=== PATIENT | female | born 1965 | race Caucasian/White ===

== ENCOUNTER 2016-10-12 09:07 | Inpatient (IN) ==
--- NOTE | 2016-10-11 21:59 | Discharge Summary ---
<Faiza Ward - Last Filed: 10/11/16 21:56> Date of Encounter: 10/11/16 - Discharge Diagnosis (1) Aseptic loosening of prosthetic knee Priority: Primary Status: Acute Qualifiers: Encounter type: initial encounter Qualified Code(s): T84.038A - Mechanical loosening of other internal prosthetic joint, initial encounter; Z96.659 - Presence of unspecified artificial knee joint (2) Anxiety Priority: Secondary Status: Chronic (3) HTN (hypertension) Priority: Secondary Status: Chronic Qualifiers: Hypertension type: essential hypertension Qualified Code(s): I10 - Essential (primary) hypertension (4) Obesities, morbid Priority: Secondary Status: Chronic Qualifiers: Obesity type: unspecified obesity type Qualified Code(s): E66.01 - Morbid ( severe) obesity due to excess calories (5) Tobacco abuse Priority: Secondary Status: Chronic - Discharge Medications Home Medications: Aripiprazole [Abilify] 10 mg PO DAILY 04/25/15 [History] ClonazePAM [Klonopin] 1 mg PO TID 04/25/15 [History] HydrOXYzine 50 mg PO TID PRN 04/25/15 [History] Lamotrigine [Lamictal] 200 mg PO DAILY 04/25/15 [History] Lisinopril [Zestril] 20 mg PO DAILY 04/25/15 [History] Quetiapine Fumarate [Seroquel] 200 mg PO HS 04/25/15 [History] Gabapentin [Neurontin] 900 mg PO TID 07/01/15 [History] Tizanidine [Zanaflex] 6 mg PO TID PRN 07/01/15 [History] Docusate [Colace] 100 mg PO BID #30 capsule 07/30/16 [Rx] Ondansetron HCl [Zofran] 4 mg PO Q6H PRN #30 tablet 07/30/16 [Rx] Aspirin Enteric Coated [Aspirin EC] 325 mg PO DAILY #21 tablet. 10/11/16 [Rx] OxyCODONE/APAP 5/325 [Percocet 5/325 MG] 1 each PO Q6HR PRN #30 tablet 10/11/16 [Rx] Albuterol Sulfate [Proair Hfa] 2 puff IH Q4H PRN 10/12/16 [History] Diclofenac Sodium [Voltaren] 1 appl TP QID PRN 10/12/16 [History] Ibuprofen [Motrin] 800 mg PO Q8HR PRN 10/12/16 [History] Lidocaine [Lidoderm] 1 appl TP Q12H PRN 10/12/16 [History] Oxycodone HCl/Acetaminophen [Percocet 5-325 mg Tablet] 1 tab PO BID PRN [History] Allergies/Adverse Reactions: Allergies tramadol Adverse Reaction (Mild, Verified 06/10/15 14:32) Nausea acetaminophen [From Vicodin] Adverse Reaction (Verified 06/10/15 13:14) Vomiting codeine Adverse Reaction (Verified 10/12/16 10:18) Nausea Diclofenac Adverse Reaction (Verified 10/12/16 10:18) Nausea hydrocodone [From Vicodin] Adverse Reaction (Verified 06/10/15 13:14) Vomiting meloxicam [From Mobic] Adverse Reaction (Verified 10/12/16 10:18) Vomiting Steriods Allergy (Uncoded 07/28/16 19:58) Difficulty Breathing Primary care physician: Rogelio Salazar, - Patient Status Disposition: Home, Self-Care Condition: Good - Discharge Instructions Follow Up With: Rogelio Salazar DO [Primary Care Provider] - Faiza Ward, PAC [Physician Program Director] - 10/23/16 11:15 am Additional Instructions: Discharge Instructions: Total Knee Replacement Please call [facility] ([phone]), your Primary Care Physician, or report to the Emergency Room if you have any of the following symptoms: Nausea, vomiting, fever greater that 101.5, swelling, chest pain, shortness of breath, increased pain/redness/drainage/odor for your incision site, numbness/ tingling, or any other concerning symptoms. ACTIVITY:Weight-bearing as tolerated. You may progress off support (cruthches or walker) as tolerated. MEDICATIONS: Upon discharge resume your home medications. Take all the medications as prescribed. Take a stool softener if taking narcotic pain medications. Stool softeners are only effective if you drink enough fluids. Drink 6-8 glass of water or fluids a day, unless this is not allowed for another health problem. Despite using stool softeners, if you haven't had a bowel movement in 3 days, please switch to a gentle laxative. Gentle laxatives are sold over the counter. You should have a bowel movement within 24 hours, if not call the office. You will be discharged from the hospital with a prescription for pain medication. You are encouraged to decrease the use of narcotic pain medication as tolerated. Should you require a refill, please call the office. [facility] prescribes narcotic pain medication for only 4-6 weeks after surgery. If you require pain medication beyond this time periord, you may be referred to your Primary Care Physician or to the Pain Clinic for further evaluation. Plan ahead for refills on pain medication as many narcotics either need to be picked up at the office or mailed. It is best to call 48-72 hours in advance of needing a prescription refill so you don't run out of medication. To help control the post-operative pain, you may take NSAIDs (Aleve,Advil, Motrin, ibuprofen, naprosyn) or Tylenol as prescribed on the bottle in addition to the pain medication. ANTICOAGULATION (blood thinners): Continue your Aspirin, Lovenox or Coumadin as prescribed to help prevent a blood clot in the leg or in the lungs. As long as your incision remains dry and you tolerate the NSAIDs (Aleve, Advil, Motrin, ibuprofen, naprosyn), it is OK to use the NSAIDS while you are taking your anticoagulation medication. Should your incision start to drain, stop the NSAID and contact our office. Common symptoms of blood clot in the legs include: localized pain, swelling, calf tenderness, redness or discoloration of the skin. Blood clot in the lung symptoms include: shortness of breath, rapid pulse, sweating, and chest pain that worsens with deep breathing, coughing up blood, lightheadedness, feelings of anxiety. If you experience any of these symptoms notify your physician immediately, go to the emergency room, or if having trouble breathing, call 911. WOUND CARE: Leave the dressing on for 7 days. You may change the dressing if it becomes saturated greater than 50%. You can shower but not a tub bath or submerge your incision in water. Wash your hands with antibacterial soap, rinse and dry prior to any wound care. If you have david the visiting nurse or rehab facility can remove the stapes 10-14 days after surgery and place steri- strips across the wound. Leave the steri-strips in place until they fall off on their won. You may let water from the shower run on top of the steri-stirips. If you do not have a visiting nurse or rehab facility, you will need to return to the office at 10-14 days for the david to be removed. FOLLOW-UP: Please follow up with your surgeon in the orthopedic clinic in 4 weeks from the day of surgery. If you have david that need to be removed, you will need to come back to the office in 10-14 days from the day of surgery. - Hospital Course Hospital course: Ms. Delgado is a 51 year old female - Time Spent with Patient Total time spent providing and/or coordinating discharge services: <Jose Chi - Last Filed: 10/13/16 06:37> Date of Encounter: 10/13/16 Time of Encounter: 06:36 - Discharge Diagnosis (1) Aseptic loosening of prosthetic knee Priority: Primary Status: Acute Qualifiers: Encounter type: subsequent encounter Qualified Code(s): T84.038D - Mechanical loosening of other internal prosthetic joint, subsequent encounter; Z96.659 - Presence of unspecified artificial knee joint (2) HTN (hypertension) Priority: Secondary Status: Chronic Qualifiers: Hypertension type: essential hypertension Qualified Code(s): I10 - Essential (primary) hypertension (3) Obesities, morbid Priority: Secondary Status: Chronic Qualifiers: Obesity type: unspecified obesity type Qualified Code(s): E66.01 - Morbid ( severe) obesity due to excess calories (4) Tobacco abuse Status: Chronic Primary care physician: Rogelio Salazar, - Patient Status Functional capacity at discharge: uses cane/walker Overall status at discharge: patient is progressing back to baseline - Hospital Course Hospital course: Ms. Delgado is a 51 year old female The patient had an uneventful postoperative course. They received antibiotics and physical therapy and were discharged in stable condition. There will follow -up in the office in 2 weeks. Aspirin DVT prophylaxis patient discharge yesterday - Time Spent with Patient Total time spent providing and/or coordinating discharge services:
[2016-10-12] MEDS ORDERED: CeFAZolin Pre 2,000 MG/100 ML 2,000 MG/100 ML BAG IVPB ONE (09:29)
[2016-10-12] MEDS ORDERED: Lidocaine 1% 20 ML MDV ID ONE (09:29)
--- NOTE | 2016-10-12 09:33 | Anesthesia Evaluation PreOp ---
Date of Encounter: 10/12/16 Time of Encounter: 09:31 - Past History Planned Operation: Left total knee revision tibial componnt Cardiac History: HTN Pulmonary History: Smoker [employer] History: Other (DDD,SAEZ, Anxiety, Depression,Myofascial pain) Other Medical History: Denies Any Significant HX Anesthesia History: No Prior Anesthetic Complications, Past Anesthesia (R. Shoulder, L. TKR, B. CTR, c/sx3, B. knee scopes, R. foot) : No Test: Negative (10/12/2016) Alcohol Use: none Drug use: marijuana Medications and Allergies Aripiprazole [Abilify] 10 mg PO DAILY 04/25/15 [History] ClonazePAM [Klonopin] 1 mg PO TID 04/25/15 [History] HydrOXYzine 50 mg PO TID 04/25/15 [History] Lamotrigine [Lamictal] 200 mg PO DAILY 04/25/15 [History] Lisinopril [Zestril] 20 mg PO DAILY 04/25/15 [History] Quetiapine Fumarate [Seroquel] 200 mg PO HS 04/25/15 [History] Gabapentin [Neurontin] 900 mg PO TID 07/01/15 [History] Tizanidine [Zanaflex] 6 mg PO TID 07/01/15 [History] Docusate [Colace] 100 mg PO BID #30 capsule 07/30/16 [Rx] Ondansetron HCl [Zofran] 4 mg PO Q6H PRN #30 tablet 07/30/16 [Rx] Sulfamethoxazole/Trimeth DS [Bactrim DS] 1 each PO Q12H #20 tablet 07/30/16 [Rx] Aspirin Enteric Coated [Aspirin EC] 325 mg PO DAILY #21 tablet. 10/11/16 [Rx] OxyCODONE/APAP 5/325 [Percocet 5/325 MG] 1 each PO Q6HR PRN #30 tablet 10/11/16 [Rx] Allergies tramadol Adverse Reaction (Mild, Verified 06/10/15 14:32) Nausea acetaminophen [From Vicodin] Adverse Reaction (Verified 06/10/15 13:14) Vomiting hydrocodone [From Vicodin] Adverse Reaction (Verified 06/10/15 13:14) Vomiting Steriods Allergy (Uncoded 07/28/16 19:58) Difficulty Breathing - Meds/Allergy Pre-op Review Medications Reviewed: Yes Allergies Reviewed: Yes Beta Blockers on Current Med List: No Anesthesia Results - Labs Laboratory Tests 09/30/16 09/30/16 09/30/16 11:41 11:41 11:41 WBC 8.5 Hgb 15.2 Hct 46.1 H Plt Count 282 INR 1.0 Sodium 139 Potassium 4.4 Chloride 108 Carbon Dioxide 20 BUN 9 Creatinine 0.79 04/02/14 Echo EF 55% Normal study - Imaging EKG: image reviewed (SR) Anesthesia Exam O2 Sat Height 1.65 m Height 1.65 m Weight 107.501 kg Weight 107.501 kg O2 Sat by Pulse Oximetry 95 Vital Signs Temp Pulse Resp BP Pulse Ox 98.5 F 66 18 142/88 95 10/12/16 09:29 10/12/16 09:29 10/12/16 09:29 10/12/16 09:29 10/12/16 09:29 Height: 5'5'' Weight: 237# NPO (# of Hours): > 8 hrs Pain Scale: 0 Pain Scale Used: Numeric (1 - 10) - HEENT Pupil (Motor): Pupils equal, EOMI Mallampati: I Teeth: Normal Oral Opening: Greater than 3 - [employer] LOC: Oriented [employer] Motor: Normal RUE, Normal LUE, Normal RLE, Normal LLE, Normal Face [employer] Sensory: Normal: RUE, LUE, RLE, LLE, Face - Cardiac Rhythm: Regular Murmur: None JVD: No Carotid Bruit: No - Pulmonary Breath Sounds: bilateral Clear Respiratory Effort: Symmetrical Anesthesia Assess/Plan ASA Score: 3 Modified Anika Scale for Level of Consciousness: Cooperative, oriented, and tranquil Anesthetic Plan: General, Regional (Left Fem. Nerve Block) Autologous Blood: Yes Monitoring Plan: Standard Monitors Recovery Plan: PACU
--- NOTE | 2016-10-12 09:41 | History & Physical Report ---
Date of Encounter: 10/12/16 Time of Encounter: 09:41 24 Hour HP Update - Instructions Instructions: If the History and Physical is less than 30 days old and was completed prior to A.M. admission and or procedure and has NOT been updated on calendar day of procedure please complete this update prior to performing procedure. - Update Patient reports changes in Medical Condition: No Changes in assessment/condition: No Changes in Medication: No Preop tests/diagnostics Reviewed: Yes Surgery Remains Indicated: Yes Consent for Planned Operative Procedure(s) Verified: Yes - Pre-Operative Checklist Preoperative Checklist Indicated: No Prophylactic Antibiotic Ordered: Yes Is VTE Prophylaxis Indicated?: Yes
[2016-10-12] MEDS ORDERED: Albuterol 2.5 MG/3 ML NEBULIZER ONE (09:43)
[2016-10-12] MEDS: Ringers Solution, Lactated 1,000 ML IVC SCH ×2 (09:54→12:00)
[2016-10-12] MEDS ORDERED: Ondansetron 4 MG/2 ML VIAL IVP ONE (10:03)
[2016-10-12] MEDS ORDERED: *HR* Labetalol 100 MG/20 ML MDV IVP PRN (10:03)
[2016-10-12] MEDS ORDERED: *HR* Promethazine 25 MG/ML VIAL IVP PRN (10:03)
[2016-10-12] MEDS ORDERED: *HR* Midazolam HCl 2 MG/2 ML VIAL ONE (10:15)
[2016-10-12] MEDS ORDERED: Ondansetron 4 MG/2 ML VIAL ONE (10:15)
[2016-10-12] MEDS ORDERED: *HR* FentaNYL (PF) 100 MCG/2 ML VIAL ONE ×2 (10:15→11:48)
[2016-10-12] MEDS ORDERED: *HR* Propofol 200 MG/20 ML VIAL IVP ONE ×2 (10:15→11:23)
[2016-10-12] MEDS ORDERED: ROPIVACAINE HCL/PF 0.5% 30 ML VIAL ONE (10:49)
[2016-10-12] MEDS ORDERED: Bupivacaine/Clonidine Syringe 1 EACH SYRINGE ONE (10:50)
[2016-10-12] MEDS ORDERED: *HR* Rocuronium Bromide 50 MG/5 ML VIAL ONE (11:21)
[2016-10-12] MEDS ORDERED: *HR* Succinylcholine 200 MG/10 ML VIAL IVP ONE (11:21)
--- NOTE | 2016-10-12 11:29 | Anesthesia Procedures ---
Date of Encounter: 10/12/16 Time of Encounter: 11:05 Procedures: Anesthesia - Nerve Block Procedure Date: 10/12/16 Time: 11:05 Checklist: Correct Patient Identifier, Correct procedure, History checked Correct side: Left Blood Thinner: No Monitor Applied: BP, Pulse Oximetry Supplemental Oxygen via Nasal Cannula (L/min): 2 Sedation: Versed (mg): 2 Sedation: Fentanyl (mcg): 100 Indication: Post Op Analgesia Pre-op Neuro Deficits: Yes Block Type: Femoral Catheter placed: No Sterile Technique: Yes Ultrasound used: Yes Anatomy identified: Yes Visual spread of Local: Yes Neuro Stimulation: Yes Nerve Stimulator Range: 0.2 - 0.4 mA Blood on Needle Aspiration: No Smooth Injection of Local: Yes Pain with Injection of Local: No Prep: Chlorhexadine Needle: 22 x 50 mm Stimuplex Local: 0.25% Bupivicaine w/Clonidine 20 mcg/cc (20ml 0.125% bup on IPAC), Ropivacaine (30ml, 0.5%bup plain on fem block) Volume (cc): 60 Number of Attempts: 1 Complications: None/effective block Vitals: vss though out, block per request of surgeon
--- NOTE | 2016-10-12 12:08 | Orthopedic Operative Note ---
Date of procedure: 10/12/16 Pre-op diagnosis: Aseptic loosening left tibial component Post-op diagnosis: same Procedure: Procedure: Left revision tibial component Estimated blood loss: 200 cc Hardware: Arthrex tibia size 4, 14 x 80 stem, 18 PS Shante Exam Under anesthesia: Full flexion full extension well-healed incision no swelling or erythema no varus valgus instability Procedural Notes: Loosening of tibial component Operative procedure: The patient was brought to the operating room and placed on the operating room table. After general anesthesia was administered the operative knee was examined. Findings were noted in the exam under anesthesia. The operative extremity was prepped and draped in sterile surgical fashion. The patient received IV antibiotics prior to skin incision. A standard midline incision was made centered over the patella. The incision was made through the skin and subcutaneous tissue through the old incision. A medial parapatellar tendon approach was performed. Care was taken to preserve tissue along the medial aspect of the patella. And to protect the patella tendon. The deep MCL was released off the medial tibia. The infra patella fat pad was excised. Cultures were obtained as well as Gram stain. The knee was brought into flexion the tibial poly-was removed. The femur was well fixed. Attention was then turned to the tibial component. The tibial component was loose and removed with an osteotome without any bone loss. Tibia was recut just below the level of the cement mantle. The tibia was prepared first sized to a 4 reamed to a 14 x 80 stem. The finishing punch was seated. Trial had good fit and fixation. Trial reduction revealed full extension and full flexion no varus valgus instability with an 18 PS Shante. Trial components removed knee sat for 2 minutes with a Betadine saline solution. It was irrigated out with pulse irrigation. Components were assembled on the back table. The tibia cemented. The 18 PS Shante was seated and secure. The had full flexion and full extension and excellent patella tracking no varus valgus instability. After the cement hardened the knee was irrigated out again. The knee was taken through a range of motion had excellent patella tracking. The extensor mechanism was closed with a running #2 Fiberwire suture and a running #2 PDS suture. The deep tissue was irrigated and closed deep with #1 PDS suture superficially with 0 PDS suture. The skin was closed with skin david. The patient was placed in a sterile dressing and postoperative brace. They were extubated and transferred to recovery room in stable condition. Anesthesia: GETA Surgeon: Jose Chi Condition: stable Disposition: PACU
[2016-10-12] MEDS ORDERED: Lidocaine -MPF 2% 2 ML VIAL ONE (12:10)
[2016-10-12] MEDS ORDERED: Lidocaine -MPF 4% 5 ML AMPUL ONE (12:10)
[2016-10-12] MEDS: *HR* HYDROmorphone (PF) 1 MG/ML SYRINGE IVP PRN ×4 (12:35→12:50)
[2016-10-12] MEDS ORDERED: *HR* Meperidine 25 MG/ML SYRINGE ONE (12:57)
[2016-10-12] MEDS ORDERED: Ketorolac 30 MG/ML VIAL ONE (12:57)
--- NOTE | 2016-10-12 13:24 | Anesthesia Evaluation Post Op ---
Date of Encounter: 10/12/16 Time of Encounter: 13:23 - Vital Signs Vital Signs: Vital Signs/O2 Sat, Most Current Temp Pulse Resp BP Pulse Ox 97.6 F 86 16 135/87 98 10/12/16 13:05 10/12/16 13:15 10/12/16 13:15 10/12/16 13:15 10/12/16 13:15 - Lungs Lungs: Clear Ascult./Percussion - Airway Airway: Non-obstructed - Cardiovascular Regular Rate - Mental Status Mental Status: Alert & Oriented, Answers Appropriately - Pain Pain Scale: 0 (Sleeping) Pain Scale used: Numeric (1 - 10) - Nausea Vomiting Nausea Vomiting: Not Present - Hydration Hydration: NPO, Has not voided - Discharge PostOp Status: Transfer Patient to floor
[2016-10-12 13:36] LABS: Hematocrit 44.6 % (35.3-44.9); Hemoglobin 14.7 g/dL (11.5-15.4)
[2016-10-12] MEDS ORDERED: Ibuprofen 800 MG TABLET PO PRN (13:56)
[2016-10-12] MEDS ORDERED: Naloxone 0.4 MG/ML INJ IVP PRN (13:56)
[2016-10-12] MEDS ORDERED: (Diclofenac Sodium [Voltaren] 1 APPL) TP PRN (13:56)
[2016-10-12] MEDS ORDERED: *HR* OxyCODONE Immed Rel 5 MG TABLET PO PRN ×2 (13:56)
[2016-10-12] MEDS ORDERED: *HR* HYDROmorphone (PF) 1 MG/ML SYRINGE IVP PRN (13:56)
[2016-10-12] MEDS ORDERED: MOM Conc 10 ML UD.LIQ PO PRN (13:56)
[2016-10-12] MEDS ORDERED: Ringers Solution, Lactated 1,000 ML IVC SCH (13:56)
[2016-10-12] MEDS ORDERED: Temazepam 15 MG CAPSULE PO PRN (13:56)
[2016-10-12] MEDS ORDERED: Ondansetron 4 MG/2 ML VIAL IVP PRN (13:56)
[2016-10-12] MEDS ORDERED: Sennosides 8.6 MG TABLET PO PRN (13:56)
[2016-10-12] MEDS ORDERED: tiZANidine 4 MG TABLET PO PRN (13:56)
[2016-10-12] MEDS ORDERED: *HR* Enoxaparin 30 MG/0.3 ML SYRINGE SQ ONE (14:59)
[2016-10-12] MEDS ORDERED: Gabapentin 300 MG CAPSULE PO SCH (15:00)
[2016-10-12] MEDS ORDERED: clonazePAM 1 MG TABLET PO SCH (15:00)
[2016-10-12 15:20] VITALS: BP 124/80
[2016-10-12] MEDS ORDERED: ceFAZolin 2,000 MG in D5% in Water 100 ML IVPB SCH (16:00)
--- NOTE | 2016-10-12 16:28 | Event Note ---
Date of Encounter: 10/12/16 Time of Encounter: 16:26 Left TKR -revision tibial component 10/12/16 Patient is doing well; A&O x 3 sitting in bed comfortably. Pain well controlled with PO Oxycodone and nerve block. Patient wishes to go home today, outpatient PT has been set up. She will have afternoon evaluation with PT, and we did discuss her going home. She will have her daughter with her the entire time, she will avoid stairs, and walking her dog to prevent falling. She does have 5 steps to get into her house, she has a walker and rollator at home. She declined any further need for DME at home. She also voiced understanding that her nerve block will be wearing off and her pain may escalate. She was educated on how to take her Oxycodone at home - ok to take 2 tab q 4 hours for the first 24-48 hours. Tylenol will also be started and she will continue her IBU 800mg. Encouraged ICE and elevation frequently.
[2016-10-12] MEDS ORDERED: *HR* Enoxaparin 30 MG/0.3 ML SYRINGE SQ SCH ×2 (18:00)
[2016-10-13] MEDS ORDERED: ARIPiprazole 10 MG TABLET PO SCH (09:00)
[2016-10-13] MEDS ORDERED: lamoTRIgine 100 MG TABLET PO SCH (09:00)
[2016-10-13] MEDS ORDERED: Lisinopril 20 MG TABLET PO SCH (09:00)
== END 2016-10-12 16:42 | disposition home health service (06) | DRG 302 ==
LOC: SAMDAY 09:07 → 3NENU 13:35
PROVIDERS: ADMIT Orthopaedic Surgery; ATTEND Orthopaedic Surgery

== ENCOUNTER 2021-01-15 10:19 | Inpatient (IN) ==
[~2021-01-15 10:19] MED LIST: Acetaminophen IV 1,000 MG/100 ML BAG IVPB ONE; Famotidine 20 MG/2 ML VIAL IVP ONE; Ringers Solution, Lactated 1,000 ML IVC ONE
[2021-01-15] MEDS ORDERED: cefOXitin 2,000 MG in Water for inj. (sterile) 20 ML IVP ONE (10:47)
[2021-01-15] MEDS ORDERED: Ondansetron 4 MG/2 ML VIAL IVP PRN ×2 (11:53→16:03)
[2021-01-15] MEDS ORDERED: Ipratropium Neb 0.5 MG NEBULIZER IH PRN (11:53)
[2021-01-15] MEDS ORDERED: *HR* HYDROmorphone (PF) 1 MG/ML SYRINGE IVP PRN (11:53)
[2021-01-15] MEDS ORDERED: *HR* FentaNYL (PF) 100 MCG/2 ML VIAL IVP PRN (11:53)
[2021-01-15] MEDS ORDERED: Naloxone 0.4 MG/ML INJ IVP PRN ×2 (11:53→16:03)
[2021-01-15] MEDS ORDERED: Albuterol 2.5 MG/3 ML NEBULIZER IH PRN (11:53)
[2021-01-15] MEDS ORDERED: Nitroglycerin 0.4 MG TAB.SUBL SL PRN (11:53)
[2021-01-15] MEDS ORDERED: *HR* Midazolam HCl 2 MG/2 ML VIAL ONE (12:42)
[2021-01-15] MEDS ORDERED: *HR* FentaNYL (PF) 100 MCG/2 ML VIAL ONE (12:42)
[2021-01-15] MEDS ORDERED: *HR* Propofol 200 MG/20 ML VIAL IVP ONE (12:43)
[2021-01-15] MEDS ORDERED: Ondansetron 4 MG/2 ML VIAL ONE (12:45)
[2021-01-15] MEDS ORDERED: *HR* Rocuronium Bromide 50 MG/5 ML VIAL ONE (12:45)
[2021-01-15] MEDS ORDERED: *HR* Succinylcholine 200 MG/10 ML VIAL IVP ONE (12:45)
[2021-01-15] MEDS ORDERED: Lidocaine -MPF 2% 2 ML VIAL ONE (12:45)
[2021-01-15] MEDS ORDERED: *HR* HYDROMORPHONE 2 MG/ML VIAL ONE (15:11)
[2021-01-15] MEDS ORDERED: Sugammadex Sodium 200 MG/2 ML VIAL IV ONE (15:12)
[2021-01-15] MEDS: *HR* OxyCODONE/APAP 5/325 TABLET PO PRN (18:07)
[2021-01-16] MEDS: cefOXitin 2,000 MG in Water for inj. (sterile) 20 ML IVP SCH ×2 (00:13→08:51)
[2021-01-16] MEDS: *HR* OxyCODONE/APAP 5/325 TABLET PO PRN (00:14)
[2021-01-16 07:20] LABS: Basophils % 0.1 %; Eosinophils % 0.1 %; Hematocrit 39.7 % (35.3-44.9); Immature Granulocytes % 0.5 % (0-4); Lymphocytes # 2.4 K/mcL (0.6-4.6); Lymphocytes % 14.7 %; Mean Corpuscular HGB Conc 35.3 g/dL (31.6-35.5); Mean Corpuscular Hemoglobin 32.3 pg (28.0-33.3); Mean Corpuscular Volume 91.7 fL (83.0-100.0); Mean Platelet Volume 9.7 fL (9.4-12.4); Monocytes # 1.3 K/mcL (0.0-1.3); Monocytes % 7.8 %; Neutrophils # 12.7 K/mcL (1.6-8.9); Platelet Count 311 K/mcL (140-400); Red Blood Count 4.33 M/mcL (3.82-4.97); Red Cell Distribution Width 11.7 % (11.5-14.5); Segmented Neutrophils % 76.8 %; White Blood Count 16.6 K/mcL (4.3-11.1)
[2021-01-16 08:15] VITALS: BP 132/81
[2021-01-16 08:19] LABS: BUN/Creatinine Ratio 14 (6-26); Blood Urea Nitrogen 10 mg/dL (6-20); eGFR For African Americans > 60 (> 60); eGFR For Non-African Americans > 60 (> 60)
[2021-01-16] MEDS ORDERED: lisinopriL 20 MG TABLET PO SCH (09:30)
[2021-01-16] MEDS ORDERED: clonazePAM 0.5 MG TABLET PO SCH (09:30)
[2021-01-16] MEDS ORDERED: Gabapentin 400 MG CAPSULE PO SCH (13:00)
== END 2021-01-16 10:51 | disposition home or self-care (01) | DRG 743 ==
LOC: SAMDAY 10:19 → 1NENUOBS 17:23
PROVIDERS: ADMIT Obstetrics & Gynecology; ATTEND Obstetrics & Gynecology